=== PATIENT | male | born 1990 | race African-American/Black ===

== ENCOUNTER 2022-04-13 13:08 | Emergency (ER) | payer OTHER, MEDICAID, SELFPAY ==
--- NOTE | 2022-04-13 13:29 | ED_ITS ---
HPI - Psych General Chief Complaint: Psychiatric Symptoms Stated Complaint: Anxiety, paranoia x 2 weeks per EMS Time Seen by Provider: 04/13/22 13:17 Source: patient Limitations: no limitations History of Present Illness HPI Narrative: This is a 31 years male presented to the emergency department with chief complaint of generalized anxiety denies SI and HI. He has history of polysubstance abuse including opioids and cocaine complaint: anxiety Onset (ago): day(s) (1) Duration: constant Relieving factors: none Exacerbating factors: none Associated psychiatric symptoms: none Related Data Allergies Allergy/AdvReac Type Severity Reaction Status Date / Time No Known Allergies Allergy Verified 04/13/22 13:40 Review of Systems Constitutional: Constitutional: Reports no additional constitutional complaints ENT: Reports system reviewed and no additional complaints, except as documented Psychiatric: Psychiatric: Reports anxiety PMFSH [facility] Narrative: Anxiety/substance abuse Social History Social History Advance Directives: No Physical Exam Vital Signs: Vital Signs: Last Vital Signs Temp 98.5 F 04/13/22 13:34 Pulse 72 04/13/22 13:34 Resp 16 04/13/22 13:34 BP 106/73 04/13/22 13:34 Pulse Ox 98 04/13/22 13:34 O2 Del Method 04/13/22 13:34 BMI result Body Mass Index 26.6 Const: General: cooperative Nutritional Appearance: well nourished Orientation/consciousness: patient oriented x3 Limitations: no limitations HEENT: Head: Yes normal to inspection Ears: hearing grossly normal bilaterally General nose exam: Normal external nose present Face and sinus: Yes normal facial exam Throat: Yes posterior oropharynx normal Neck: Neck: Yes normal visual inspection Chest: Chest palpation & inspection: normal inspection of the chest Resp: Effort & Inspection: normal respiratory effort and able to speak in complete sentences Auscultation: clear to auscultation bilaterally Cardio: Jugular venous distension: no JVD Rate: regular rate Rhythm: regular rhythm GI: Inspection: Yes normal to inspection Palpation (GI): Soft to palpation, not firm and nontender Auscultation: normal bowel sounds Skin: General skin exam: no rashes or lesions noted and elasticity normal Lesions: no lesions Rashes: no rashes Trauma: no lacerations or abrasions Neuro: General: patient oriented x3 and gait normal Cranial nerves: Yes CN's II-XII intact bilaterally Gait exam (Neuro): Normal gait present Course Reevaluation(s) Reevaluation #1: SIGNED OUT TO DR REGINA ROACH PENDING Time: 16:12 Medications Administered Discontinued Medications Generic Name Dose Route Start Last Admin Trade Name Freq PRN Reason Stop Dose Admin Lorazepam 1 mg 04/13/22 13:50 04/13/22 14:13 Lorazepam 1 Mg Tablet PO 04/13/22 13:51 1 mg ONCE ONE Administration Medical Decision Making Lab Data Labs: Lab Results 04/13/22 04/13/22 Range/Units 13:54 14:06 Urine Opiates Screen Not Detected (Not Detect) Urine Fentanyl Screen POSITIVE H (Not Detect) Ur Barbiturates Screen Not Detected (Not Detect) Ur Phencyclidine Scrn Not Detected (Not Detect) Ur Amphetamines Screen Not Detected (Not Detect) U Benzodiazepines Scrn Not Detected (Not Detect) Urine Cocaine Screen POSITIVE H (Not Detect) U Marijuana (THC) Screen POSITIVE H (Not Detect) COVID-19 (MELANIE) Negative (Negative) COVID-19 Clin Com See Note Discharge Plan Discharge Clinical Impression: Anxiety Patient Disposition: Still a Patient Interventions: [place]-Suicide Risk Severity Scale Last Done: 04/13/22 15:34
[2022-04-13 13:34] VITALS: BP 106/73; PULSE 72; RESP 16; TEMP 36.9; O2SAT 98; BMI 26.6
[2022-04-13] MEDS: LORazepam 1 MG TABLET PO (14:13)
[2022-04-13 14:29] LABS: IDNOW Serial# BCCEAD1C
[2022-04-13 14:30] LABS: COVID-19 Test Negative (Negative)
[2022-04-13 14:43] LABS: Amphetamine Screen Urine Not Detected (Not Detect); Barbiturates, Urine Not Detected (Not Detect); Benzodiazepines Screen Urine Not Detected (Not Detect); Cannabinoid Screen Urine POSITIVE (Not Detect); Cocaine Screen Urine POSITIVE (Not Detect); Fentanyl, urine POSITIVE (Not Detect); Opiate Screen Urine Not Detected (Not Detect); Phencyclidine Screen Urine Not Detected (Not Detect)
[2022-04-13] MEDS: Nicotine 21 MG PATCH.TD24 TRANSDERMA (16:55)
--- NOTE | 2022-04-13 17:09 | MHC.RECOVSUP ---
? Reason for consult Recovery Support o Current location: [facility] o Identified substance use concern: Cocaine - Support ? Intervention: o Community resources provided o Harm reduction discussion ? Plan: o Patient to follow up with [facility] after discharge ? Additional information: Met with Patient.. Talk about harm reduction and recovery,, We also talked about resources and was given some.
== END 2022-04-13 17:34 | disposition home or self-care (01) ==
PROVIDERS: Emergency Medicine; Emergency Provider Emergency Medicine Emergency Medical Services
DX: F41.1 Generalized anxiety disorder (principal); F22 Delusional disorders; F19.10 Other psychoactive substance abuse, uncomplicated; Z20.822 Contact with and (suspected) exposure to COVID-19; Z59.01 Sheltered homelessness
CPT/HCPCS: 80307; 87635; 99284; S9485

== ENCOUNTER 2024-09-29 16:52 | Emergency (ER) | payer MEDICAID, SELFPAY ==
--- NOTE | ~2024-09-29 | XR_ITS ---
CLINICAL HISTORY: fx vs dislocation, fall, pain 3 view left shoulder Comparison: None provided Findings: Bones intact. No dislocations. No significant arthritic change. No erosions. No radiopaque foreign body. IMPRESSION: 1. No acute findings This document has been electronically signed by: Melita Morel MD on 09/29/2024 18:03:53
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
[2024-09-29 17:04] VITALS: BP 136/82; PULSE 85; O2SAT 98
[2024-09-29 17:13] VITALS: BP 142/88; PULSE 82; RESP 16; TEMP 36.8; O2SAT 95; BMI 21.9
[2024-09-29 17:32] VITALS: BP 145/86; PULSE 87; RESP 18; TEMP 36.6; O2SAT 98
[2024-09-29 19:36] VITALS: BP 00/00; PULSE 0; RESP 16; TEMP -17.7; TEMP 0
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
== END 2024-09-29 19:38 | disposition home or self-care (01) ==
PROVIDERS: Emergency Provider Emergency Medicine
DX: S40.012A Contusion of left shoulder, initial encounter (principal); M25.512 Pain in left shoulder; Y04.8XXA Assault by other bodily force, initial encounter; Y93.9 Activity, unspecified; Y92.9 Unspecified place or not applicable; Y99.8 Other external cause status
CPT/HCPCS: 73030; 96372; 99284; J1885

== ENCOUNTER → 2024-09-29 17:01 | Outpatient (BNV) | payer MEDICAID, SELFPAY | PROVIDERS: Emergency Provider Emergency Medicine; Visit Provider Radiology Diagnostic Radiology | DX: M25.512 Pain in left shoulder (principal); W19.XXXA Unspecified fall, initial encounter | CPT/HCPCS: 73030 ==